=== PATIENT | male | born 1985 | race Hispanic/Latino ===

== ENCOUNTER 2016-03-26 09:11 | Outpatient (CLI) | payer OTHER ==
[2016-03-26 10:18] LABS: Blood Urea Nitrogen 16 mg/dL (9-20)
[2016-03-26] MEDS ORDERED: NACL ONE (10:27)
--- NOTE | 2016-03-26 12:42 | Cat Scan Report ---
CT ABDOMEN AND PELVIS WITHOUT AND WITH CONTRAST INDICATION: Lower abdominal pain, weight loss. COMPARISON: None similar. FINDINGS: Abdomen and pelvis CT performed before and after intravenous administration of 100 cc of Omnipaque 300. Oral contrast also given. LUNG BASES: Slight bibasilar scarring. Top normal heart size. Nonspecific distal esophageal wall thickening, not excluded for gastroesophageal reflux and/or hiatal hernia, amongst others. ABDOMEN: Precontrast images demonstrate no radiopaque gallstones or renal calculi. On the postcontrast images, right hepatic lobe prominent/slightly enlarged at 18.6 cm in midclavicular length. Liver, spleen, gallbladder, pancreas, adrenals, nonaneurysmal abdominal aorta, IVC and kidneys otherwise within normal limits bilaterally without hydronephrosis, ascites or size significant adenopathy. Approximately 1.6 x 0.7 cm right interpolar calyceal diverticulum extends to the cortex, axial series 5, image 17. Opacified GI tract nonobstructive. Normal appendix. Moderate colonic stool, greatest along the ascending colon/possible constipation. Small fat containing umbilical hernia with a transverse neck of approximately 7 mm. PELVIS: Rectosigmoid stool. Unremarkable urinary bladder, seminal vesicles and prostate. Few small pelvic phleboliths. No free fluid or significant adenopathy. Unremarkable bones. CONCLUSION: No acute CT abnormality with few incidental findings, as above, including possible constipation. Please correlate. Thank you for the opportunity to participate in this patient's care.
== END 2016-03-26 09:12 | disposition home or self-care (01) ==
LOC: CT 09:11
PROVIDERS: ATTEND Family Medicine
DX: K63.89 Other specified diseases of intestine (principal); K42.9 Umbilical hernia without obstruction or gangrene; R63.4 Abnormal weight loss; R10.30 Lower abdominal pain, unspecified; I87.8 Other specified disorders of veins
CPT/HCPCS: 36415; 74178; 82565; 84520; Q9967